=== PATIENT | male | born 1945 | race Caucasian/White ===

== ENCOUNTER → 2023-11-08 | Outpatient (CLI) | payer MEDICARE, BC ==
--- NOTE | 2023-11-08 18:39 | XR ---
EXAMINATION TYPE: XR foot complete RT DATE OF EXAM: 11/08/2023 COMPARISON: NONE HISTORY: 78-year-old male [id number] PAIN RIGHT FOOT TECHNIQUE: 3 views FINDINGS: Osteopenia. Suspect old capsular injury along the lateral plantar aspect of the first proxi mal phalangeal base. Mild degenerative change at the first MTP joint. Os peroneum. Small plantar heel spur. A corticated ossific density just adjacent probably representing chronically fractured spur. T here is an os intermetatarseum noted low with some dorsal soft tissue swelling at the forefoot. IMPRESSION: 1. Os intermetatarseum as well as an os peroneum. 2. Suspect old injury at the first MTP joint with underlying mild OA.. 3. Some dorsal forefoot soft tissue swelling is nonspecific. No acute osseous abnormality seen.
== END | disposition home or self-care (01) ==
LOC: RADXRYALE 12:01
PROVIDERS: ATTEND Internal Medicine
DX: M79.89 Other specified soft tissue disorders (principal); M79.671 Pain in right foot